=== PATIENT | male | born 1975 | race Caucasian/White ===

== ENCOUNTER 2020-01-07 09:12 | Emergency (ER) | payer OTHER, SELFPAY ==
--- NOTE | 2020-01-07 09:22 | ED.SKABFB ---
HPI - Skin/Abscess/Foreign Bdy General Chief complaint: Skin/Abscess/Foreign Body Stated complaint: sore on upper back Time Seen by Provider: 01/07/20 09:24 Source: patient and RN notes reviewed History of Present Illness HPI narrative: Patient is a 44-year-old male who presents the urgent care with complaints of a sore on the back. Patient states he noticed the area approximately 4 to 5 months ago and it has recently became an issue over the last few weeks. Patient states that it is now red and tender. Denies of any drainage or opening. Denies of any known injury to the area. Denies of any history of abscess or sebaceous cyst. Denies of fever, chills, nausea, vomiting. Denies any use of [id number] medication. No other acute complaints. No acute distress noted. Patient aware of the plan of care. Some parts of this dictation were generated by voice recognition software and may contain typographical and/or grammatical inaccuracies. Related Data Allergies Allergy/AdvReac Type Severity Reaction Status Date / Time No Known Allergies Allergy Verified 01/07/20 09:33 Review of Systems Review of Systems: Narrative: CONSTITUTIONAL: Denies fever, chills, or sweats. EYES: Denies visual changes, redness, or discharge. ENT: Denies rhinorrhea, congestion, sore throat, or otalgia. CARDIOVASCULAR: Denies chest pain, palpitations, or edema. RESPIRATORY: Denies cough or dyspnea. GASTROINTESTINAL: Denies abdominal pain, nausea, vomiting, or diarrhea. GENITOURINARY: Denies dysuria or hematuria. SKIN: Reports of a sore on the back MUSCULOSKELETAL: Denies back pain, joint pain, or myalgia. NEUROLOGIC: Denies headache, numbness, or weakness. All other systems reviewed are negative, except as documented in HPI. PMFSH Comments At the time of my signature, I reviewed and agree with the nursing past medical, surgical, social, and family history. There is no relevant family history pertinent to the patient complaint. Exam Narrative: Exam Narrative: GENERAL: This is a well-nourished, well-developed patient, in no apparent distress. HEAD: normocephalic, atraumatic. EYES: PERRL. Sclera clear/white. Vision is grossly intact. EARS: External ears normal NOSE: External nose normal with no obvious nasal discharge, nares without redness, no rhinorrhea. THROAT: Mucous membranes moist NECK: Neck supple, SKIN: 3 x 6 cm mostly firm sebaceous cyst located on the right back with 2 cm redness-slight induration, tender. Warm, intact with no suspicious lesions or rash, good texture and turgor. NEURO: awake, alert, and oriented to person, place and time. There were no obvious focal neurologic abnormalities. EXTREMITIES: No clubbing, cyanosis, or edema. Course Vital Signs Vital signs: Vital Signs Temperature 98.3 F 01/07/20 09:24 Pulse Rate 63 01/07/20 09:24 Respiratory Rate 18 01/07/20 09:24 Blood Pressure 136/71 01/07/20 09:24 Pulse Oximetry 100 01/07/20 09:24 Temperature 98.3 F 01/07/20 09:24 Pulse Rate 63 01/07/20 09:24 Respiratory Rate 18 01/07/20 09:24 Blood Pressure 136/71 01/07/20 09:24 Pulse Oximetry 100 01/07/20 09:24 Reviewed MDM - Skin/Abscess/Foreign Bdy MDM Narrative Medical decision making narrative: Spoke to the patient regarding abscess versus sebaceous cyst. Advised the patient to complete oral antibiotic regimen as prescribed. Be sure to eat and drink with the medication. Use a warm compress to the area for comfort. Do not try to open the area with a needle or pick on the area. If you experience any increase in tenderness associated with redness, swelling, fever, chills, nausea, vomiting?go to the emergency room. You may need further follow-up by a PCP, primary care nurse practitioner, or general surgeon for removal if necessary. Follow-up with the PCP within 1 week for reevaluation. Differential Diagnosis Differential diagnosis: Likely abscess of skin or subcutaneous tissue, urticaria, herpes zoster, cellulitis,
[2020-01-07 09:24] VITALS: BP 136/71; PULSE 63; RESP 18; TEMP 36.8; O2SAT 100
== END 2020-01-07 09:40 | disposition home or self-care (01) ==
PROVIDERS: Emergency Provider Nurse Practitioner Family
DX: L72.3 Sebaceous cyst (principal)
CPT/HCPCS: 99213; G0463

== ENCOUNTER 2022-12-29 12:09 | Emergency (ER) | payer OTHER, SELFPAY ==
[2022-12-29 12:17] VITALS: BP 107/68; PULSE 55; RESP 16; TEMP 36.4; O2SAT 100
--- NOTE | 2022-12-29 13:20 | ED.SKABFB ---
HPI - Skin/Abscess/Foreign Bdy General Chief complaint: Skin/Abscess/Foreign Body Stated complaint: Skin Sore Time Seen by Provider: 12/29/22 13:14 Source: patient and RN notes reviewed Mode of arrival: ambulatory Limitations: no limitations History of Present Illness HPI narrative: Patient presents today complaining of a cyst to the perineum that he noticed yesterday. Currently rates his pain 8/10 and has been taking ibuprofen with mild relief. States previous abscess on his back last year. Related Data Home Medications Medication Instructions Recorded Confirmed No Home Medications 12/29/22 12/29/22 Allergies Allergy/AdvReac Type Severity Reaction Status Date / Time No Known Allergies Allergy Verified 12/29/22 12:37 Review of Systems Review of Systems: CONSTITUTIONAL: Denies body aches, fever, chills, or sweats. EYES: Denies visual changes, redness, or discharge. ENT: Denies rhinorrhea, congestion, sore throat, or otalgia. CARDIOVASCULAR: Denies chest pain, palpitations, or edema. RESPIRATORY: Denies cough or dyspnea. GASTROINTESTINAL: Denies abdominal pain, nausea, vomiting, or diarrhea. GENITOURINARY: Denies dysuria or hematuria. SKIN:+ cyst to perineum MUSCULOSKELETAL: Denies back pain, joint pain, or myalgia. NEUROLOGIC: Denies headache, numbness, tingling, or weakness. PSYCH: Denies depression or anxiety. PMFSH Comments At time of signature, I have reviewed and agree with nursing past medical, surgical, social and family history unless otherwise noted. Please see nursing chart for further information. There is no relevant family history pertinent to the presenting complaint Exam Narrative: GENERAL: Well-appearing, well-nourished, and in no acute distress. HEAD: Normocephalic, atraumatic. EYES: EOMI. No redness or drainage. Conjunctivae normal. ENT: Mucous membranes pink and moist. NECK: Normal AROM. CHEST: No respiratory distress. MUSCULOSKELETAL: No bony tenderness. EXTREMITIES: Normal range of motion. No edema. SKIN: Warm, dry, no rash. Capillary refill normal. Normal skin turgor. 2 x 2 cm erythematous fluctuant perirectal lesion that is tender to palpation. NEURO: No focal deficits. Alert and oriented x3. Gait steady. PSYCH: Normal affect. No signs of depression or anxiety. Course Course Level of Care: Express Care Visit Vital Signs Vital signs: Vital Signs Temperature 97.6 F 12/29/22 12:17 Pulse Rate 55 L 12/29/22 12:17 Respiratory Rate 16 12/29/22 12:17 Blood Pressure 107/68 12/29/22 12:17 Pulse Oximetry 100 12/29/22 12:17 Oxygen Delivery Room Air 12/29/22 12:17 Temperature 97.6 F 12/29/22 12:17 Pulse Rate 55 L 12/29/22 12:17 Respiratory Rate 16 12/29/22 12:17 Blood Pressure 107/68 12/29/22 12:17 Pulse Oximetry 100 12/29/22 12:17 Oxygen Delivery Room Air 12/29/22 12:17 Reviewed Transfer Transfered to: [facility] Transportation: Other (Private vehicle) Transfer rationale: Perirectal abscess Accepting physician: Marquez BOLES - Skin/Abscess/Foreign Bdy MDM Narrative Medical decision making narrative: Patient's abscess is quite close to the rectum. Because of this, I recommend that he go to the ER for further evaluation and treatment. Patient would like to go to [facility] Differential Diagnosis Differential diagnosis: Likely abscess of skin or subcutaneous tissue and cellulitis Critical Care Time Critical Care Time Critical Care Time: No Discharge Plan Discharge Clinical Impression: Abscess, perirectal Patient Disposition: Acute Care Hospital Condition: Stable Prescriptions: No Action No Home Medications Follow-up/Referrals: Wes,Elmer Avitia MD [Primary Care Provider] - Time of Disposition: 13:27
== END 2022-12-29 13:30 | disposition short-term general hospital (02) ==
PROVIDERS: Emergency Provider Nurse Practitioner; PCP Internal Medicine
DX: K61.1 Rectal abscess (principal)
CPT/HCPCS: 99212; G0463